=== PATIENT | female | born 1955 | race African-American/Black ===

== ENCOUNTER 2016-09-27 15:29 | Observation (INO) ==
--- NOTE | 2016-09-27 15:54 | EKG Report ---
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
--- NOTE | 2016-09-27 16:02 | Emergency Department Note ---
Blaire Luu Brittany, am scribing for, and in the presence of, Simone Wray MD 15: 55. Kamala Luu James D, MD, personally performed the services described in this documentation, ascribed by Verna Rudd in my presence, and it is both accurate and complete 557 . Arrival - Arrival ED Nursing Triage Note: PT TRANSFERRED FROM [facility] FOR EVALUATION OF REPORTED 3RD DEGREE AV BLOCK. PT REPORTS WAS PLACED ON VERAPAMIL IN May AND EVERY MORNING AT 0300 SHE FEELS HER HEART RATE DECREASE BUT USUALLY RESOLVES. PT STATES WORSE TODAY AND BECAME DIZZY WITH EPISODE OF BRADYCARDIA. Mode of Arrival: Stretcher Limitations: No Limitations Source: Patient, RN Notes Reviewed - History of Present Illness Onset (ago): month(s) (Started 5 months ago) Consistency: constant Severity: moderate <Simone Wray - Last Filed: 09/27/16 15:57> <Marino Domingo - Last Filed: 09/27/16 19:27> - Arrival Chief Complaint: Shortness of Breath Stated Complaint: TRANSFER [facility] 3RD DEGREE AV BLOCK - History of Present Illness HPI Narrative: This is a 60 y/o black female,who presents to the ED by EMS for further evaluation of 3rd Degree AV Block. She was transferred from [facility]. She states she was being seen secondary to SOB, dizziness and lightheadedness. She reports she was placed on Verapamil in May of 2016 and since these Sx started. She states she stopped taking the meds for no more than 3 days at one point. She then started taking the meds again. Pt states she takes the medication at 0800 and the Sx stop at 1500, once the medication wears off. Pt has no other complaints/pain in the ED at this time. Pt has a PMHx of HTN, [place], and NIDDM. Pt has had a cardiac with 6 stents. Pt denies a family medical Hx. Pt denies a social Hx. (Verna Rudd) This is a 60 y/o black female,who presents to the ED by EMS for further evaluation of 3rd Degree AV Block. She was transferred from [facility]. She states she was being seen secondary to SOB, dizziness and lightheadedness. She reports she was placed on Verapamil in May of 2016 and since these Sx started. She states she stopped taking the meds for no more than 3 days at one point. She then started taking the meds again. Pt states she takes the medication at 0800 and the Sx stop at 1500, once the medication wears off. Patient is also on Bystolic 20 mg daily. Patient has no symptoms at this time. Pt has no other complaints/pain in the ED at this time. Pt has a PMHx of HTN, [place], and NIDDM. Pt has had a cardiac with 6 stents. Pt denies a family medical Hx. Pt denies a social Hx. (Simone Wray) Allergies/Adverse Reactions: Allergies Allergy/AdvReac Type Severity Reaction Status Date / Time IVP Allergy Unknown/Unable Uncoded 09/27/16 15:38 to obtain Home Medications: Home Medications Medication Instructions Recorded Confirmed Type Aspirin [Ecotrin] 81 mg PO DAILY 09/27/16 09/27/16 History Atorvastatin [Lipitor] 20 mg PO BEDTIME 09/27/16 09/27/16 History Losartan/Hydrochlorothiazide 1 each PO DAILY 09/27/16 09/27/16 History [Losartan-Hctz 100-12.5 mg Tab] Metformin HCl 1,000 mg PO BID 09/27/16 09/27/16 History Nebivolol HCl [Bystolic] 20 mg PO DAILY 09/27/16 09/27/16 History Verapamil HCl [Verapamil Tab] 120 mg PO DAILY 09/27/16 09/27/16 History glyBURIDE [Diabeta] 5 mg PO DAILY 09/27/16 09/27/16 History Review of System - Review of System 12 point system: reviewed and no additional remarkable complaints except as stated - Review of System Cardiovascular: Present: palpitations, other (Dyspnea) Neurological: Present: vertigo (Dizziness), other (Lightheadedness) <Simone Wray - Last Filed: 09/27/16 15:57> Medical,Surgical,& Family Hx - Medical History Cardio: History of: Hypertension, [place] Endocrine: History of: Diabetes Mellitus (NIDDM) - Surgical History Cardiac Surgeries: Sugical HX of: Cardiac Catheterization (6 STENTS) - Social History Smoking Status: Never smoker Frequency of Alcohol Use: None Type of Drug Use: None <Simone Wray - Last Filed: 09/27/16 15:57> Exam <Simone Wray - Last Filed: 09/27/16 15:57> <Marino Domingo - Last Filed: 09/27/16 19:27> Vital Signs: Vital Signs Temperature 98.6 F 09/27/16 19:25 Pulse Rate 55 L 09/27/16 19:25 Respiratory Rate 17 09/27/16 19:25 Blood Pressure 158/87 09/27/16 19:25 O2 Sat by Pulse Oximetry 100 09/27/16 19:25 (Verna Rudd) GENERAL: This is a well-nourished well-developed obese black female in no apparent distress. VITAL SIGNS: Reviewed HEENT: Head is atraumatic and normocephalic. Pupils are equal round react to light. Extraocular movements are intact. Oropharynx is benign with moist mucous membranes. NECK: Neck is soft and supple without tenderness. There are no masses. There is no lymphadenopathy. LUNGS: Lungs are clear to auscultation. Chest rises symmetrically. There is no chest wall tenderness. CV: Heart is slow, regular rate and rhythm without murmurs rubs or gallops. ABDOMEN: Abdomen is soft, nontender to palpation. There are no abdominal abnormal masses palpated. There is no organomegaly. Bowel sounds are present and active. SKIN: Skin is warm and dry. No rash. EXTREMITIES: Patient has full range of motion without tenderness. There is no pedal edema. NEUROLOGIC: Awake alert and oriented 4. Cranial nerves II through XII are grossly intact. Motor is 5 over 5 in all extremities bilaterally. (Simone Wray) (Marino Domingo) Course - Consultations Time: 16:02 <Simone Wray - Last Filed: 09/27/16 15:57> - Consultations Time: 17:07 <Marino Domingo - Last Filed: 09/27/16 19:27> - Consultations Consultation #1: Discussed with Dr. Anderson. He will see the patient in the emergency department. (Simone Wray) Consultation #2: Dr. De Anda is in the ER to evaluate pt (Marino Domingo) Results - EKG EKG results: interpreted by ERMD <Simone Wray - Last Filed: 09/27/16 15:57> <Marino Domingo - Last Filed: 09/27/16 19:27> - Impressions EKG: Sinus bradycardia with a rate of 56, normal ST-T waves, normal axis. Review of EKG at [facility] reveals: Third-degree AV block with rate of 47. (Simone Wray) Disposition Case discussed with: patient <Simone Wray - Last Filed: 09/27/16 15:57> Case discussed with: patient, patient's family Time of Disposition: 17:27 <Marino Domingo - Last Filed: 09/27/16 19:27> Clinical Impression: Third degree AV block, Essential hypertension Disposition: Still a Patient Condition: Stable
--- NOTE | 2016-09-27 17:28 | Cardiology History & Physical ---
Assessment and Plan (1) Dizziness Status: Acute Assessment and plan: 1. 60-year-old severely overweight BF with history of hypertension, IDDM, dyslipidemia, CAD status post remote PCI to RCA and circumflex (Cypher 2.5 x 16 , Cypher 2.5 x 13, mini vision 2 x 18, probably in [address] Murphy at [facility]), as well as stenting of her circumflex and subtotal [address] Moore. She apparently has been on verapamil intermittently for PACs?, And is been having bradycardia transiently after taking it, but today developed third-degree AV block with some modest dizziness and dyspnea; she now has normal sinus rhythm rate of upper 50s and is asymptomatic. Her EKG prior to transfer shows third- degree block with junctional escape at 47 BPM 2. Likely caused by her verapamil and Bystolic; we will simply discontinue these; she drinks about one half diet Mountain Dew's per day, discussed with her her need to stop all caffeine use, which may obviate the need for AV genie drugs. 3. Observation overnight on telemetry 4. November 2015 echocardiogram showed EF 60% 5. Myocardial perfusion scan April 2016 showed no evidence of ischemia 6. Check morning TSH and electrolytes Current Visit: Yes (2) Third degree AV block Status: Acute Current Visit: Yes History of Present Illness Chief complaint: AVB; dizzy History of present illness: Ms. Aceves is a 60 year old female followed by Dr. Pretty is. Reports having 6 stents [place] [address] Murphy when she was having prolonged chest pain. She reports taking verapamil for palpitations/PACs? She started back taking the last few days. She reports improvement in her symptoms but associated bradycardia which goes away later in the day. Today she developed some dizziness and shortness of breath with her bradycardia and was seen by Dr. Bobby Pittman and found to have complete AV block with junctional escape at 47 BPM. She is now asymptomatic and wants to go home. She reports "it always does this and it goes away" she's also been on Bystolic but wishes to stop it due to the cost. She is unsure whether she is around a heart attack. She has stress test by Dr. Belle in April according to her, that showed "no blockage". Home Medications Medication Instructions Recorded Confirmed Type Aspirin [Ecotrin] 81 mg PO DAILY 09/27/16 09/27/16 History Atorvastatin [Lipitor] 20 mg PO BEDTIME 09/27/16 09/27/16 History Losartan/Hydrochlorothiazide 1 each PO DAILY 09/27/16 09/27/16 History [Losartan-Hctz 100-12.5 mg Tab] Metformin HCl 1,000 mg PO BID 09/27/16 09/27/16 History Nebivolol HCl [Bystolic] 20 mg PO DAILY 09/27/16 09/27/16 History Verapamil HCl [Verapamil Tab] 120 mg PO DAILY 09/27/16 09/27/16 History glyBURIDE [Diabeta] 5 mg PO DAILY 09/27/16 09/27/16 History Allergies Allergy/AdvReac Type Severity Reaction Status Date / Time IVP Allergy Unknown/Unable Uncoded 09/27/16 15:38 to obtain - Cardiovascular Cardiovascular: Present: as per HPI - Respiratory Respiratory: Present: as per HPI - Gastrointestinal Gastrointestinal: Absent: abdominal pain, diarrhea - Neurological Neurological: Absent: confusion, syncope Medical,Surgical,& Family Hx - Medical History Cardio: History of: Hypertension, [place] Endocrine: History of: Diabetes Mellitus (NIDDM) - Surgical History Cardiac Surgeries: Sugical HX of: Cardiac Catheterization (6 STENTS) - Social History Smoking Status: Never smoker Frequency of Alcohol Use: None Type of Drug Use: None Cardiology Physical Exam - Constitutional Vitals: Vital Signs Temp Pulse Resp BP Pulse Ox 98.6 F 43 L 17 167/85 99 09/27/16 16:00 09/27/16 16:30 09/27/16 16:30 09/27/16 16:30 09/27/16 16:30 Intake and Output 09/27/16 09/27/16 09/27/16 07:59 15:59 23:59 Other: Weight 127.006 kg Patient Weight 09/27/16 23:59 Weight 127.006 kg General appearance: no acute distress, over weight - Head Head exam: Present: normal inspection, normocephalic, atraumatic - Neck Neck exam: Present: normal inspection - Respiratory Respiratory exam: Present: clear to auscultation bilaterally. Absent: stridor, wheezes - Cardiovascular Cardiovascular exam: Present: bradycardia. Absent: diastolic murmur, irregular rhythm, rubs, systolic murmur - GI/Abdominal GI/Abdominal exam: Present: soft. Absent: tenderness - Extremities Exam Extremities exam: Absent: edema
[2016-09-27] MEDS ORDERED: ACETAMINOPHEN 325 MG TABLET PO PRN (17:34)
[2016-09-27] MEDS ORDERED: ZALEPLON 5 MG CAPSULE PO PRN (17:34)
[2016-09-27] MEDS ORDERED: ONDANSETRON 4 MG/2 ML VIAL IV PRN (17:34)
[2016-09-27] MEDS ORDERED: MAGNESIUM SULF RIDER 2 GM in PREMIX 1 EACH IV PRN (17:34)
[2016-09-27] MEDS: DOCUSATE SODIUM 100 MG CAPSULE PO SCH (20:56)
[2016-09-27] MEDS: metFORMIN 500 MG TABLET PO SCH (20:56)
[2016-09-27] MEDS ORDERED: ATORVASTATIN 20 MG TABLET PO SCH (21:00)
[2016-09-28 08:34] VITALS: BP 158/80
[2016-09-28] MEDS: DOCUSATE SODIUM 100 MG CAPSULE PO SCH ×2 (08:57→09:01)
[2016-09-28] MEDS: metFORMIN 500 MG TABLET PO SCH (08:57)
[2016-09-28] MEDS ORDERED: glyBURIDE 5 MG TABLET PO SCH (09:00)
[2016-09-28] MEDS ORDERED: ASPIRIN EC 81 MG TABLET PO SCH (09:00)
[2016-09-28] MEDS ORDERED: LOSARTAN 50 MG TABLET PO SCH (09:00)
[2016-09-28] MEDS ORDERED: hydroCHLOROthiazide 12.5 MG CAPSULE PO SCH (09:00)
[2016-09-28] MEDS ORDERED: PANTOPRAZOLE 40 MG TABLET PO SCH (09:00)
--- NOTE | 2016-09-28 10:40 | EKG Report ---
Stationary ECG Study 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
[2016-09-28 11:03] LABS: Albumin 3.2 G/DL (3.4-5.0); Bilirubin,Total 0.4 MG/DL (0.2-1.0); Calcium 9.2 MG/DL (8.5-10.1); Free T4 (Free Thyroxine) 1.11 NG/DL (0.76-1.46); Osmolality,Calculated 283.7 MOS/KG (273-304); Potassium 4.5 MMOL/L (3.5-5.1); Thyroid Stimulating Hormone 0.925 uIU/ml (0.358-3.74); Total Protein 7.1 G/DL (6.4-8.3)
--- NOTE | 2016-09-28 11:21 | Event Note ---
Ms. Aceves continues to be asymptomatic and have normal sinus rhythm. Her lab is unremarkable with normal TSH and electrolytes. I will discharge with follow- up with Dr. Mera in one to 2 weeks' time. We will hold her Bystolic and verapamil have asked her to avoid caffeine.
== END 2016-09-28 12:37 | disposition home or self-care (01) ==
LOC: EDBD → EDUNIT# → N.ED 15:29 → N.EDINP 15:29 → N.TELES 19:48
PROVIDERS: ADMIT Internal Medicine Cardiovascular Disease; ATTEND Internal Medicine Cardiovascular Disease